=== PATIENT | male | born 1965 | race Caucasian/White ===

== ENCOUNTER 2017-12-07 01:48 | Emergency (ER) | payer MEDICAID ==
[~2017-12-07] VITALS: Ht 170.2 cm; Wt 81.8 kg
[~2017-12-07 01:48] MED LIST: CHLO473M3 PO
[2017-12-07 02:29] VITALS: BP 176/102
== END 2017-12-07 02:31 ==
LOC: ER 01:48
DX: I10 Essential (primary) hypertension (principal); E11.9 Type 2 diabetes mellitus without complications; F12.10 Cannabis abuse, uncomplicated; Z59.0 Homelessness; Z56.0 Unemployment, unspecified
CPT/HCPCS: 99283

== ENCOUNTER 2018-02-18 23:00 | Emergency (ER) | payer MEDICAID ==
[~2018-02-18] VITALS: Ht 170.2 cm; Wt 81.2 kg
[2018-02-18] MEDS ORDERED: BACDS PO (23:54)
[2018-02-19 00:07] VITALS: BP 140/100
== END 2018-02-19 00:09 | disposition home or self-care (01) ==
LOC: ER 23:01
DX: L08.9 Local infection of the skin and subcutaneous tissue, unspecified (principal); E11.9 Type 2 diabetes mellitus without complications; I10 Essential (primary) hypertension; Z59.0 Homelessness; Z56.0 Unemployment, unspecified
CPT/HCPCS: 73140; 99284

== ENCOUNTER 2018-03-19 22:21 | Emergency (ER) | payer MEDICAID ==
[~2018-03-19] VITALS: Ht 170.2 cm; Wt 80.0 kg
[2018-03-20] MEDS ORDERED: CHLO118M PO (01:56)
[2018-03-20 03:15] VITALS: BP 168/106
[2018-03-20] MEDS ORDERED: IBUP-1984 PO (03:31)
[2018-03-20] MEDS ORDERED: HYDR-3965 PO (03:31)
== END 2018-03-20 03:39 | disposition home or self-care (01) ==
LOC: ER 22:21
DX: S12.301 Unspecified nondisplaced fracture of fourth cervical vertebra (principal); S02.82XD Fracture of other specified skull and facial bones, left side, subsequent encounter for fracture with routine healing; S70.12XD Contusion of left thigh, subsequent encounter
CPT/HCPCS: 73564; 93971; 99284

== ENCOUNTER 2018-05-21 00:40 | Emergency (ER) | payer MEDICAID ==
[~2018-05-21] VITALS: Ht 170.2 cm; Wt 79.0 kg
[~2018-05-21 00:40] MED LIST changes: +CHLO118M PO
[2018-05-21] MEDS ORDERED: HYDROmorphone 2mg tablet PO PRN (01:15)
[2018-05-21] MEDS: normal saline 1000ML IV soln IVB ONE ×2 (01:17→05:23)
[2018-05-21 02:41] LABS: CLARITY,URINE CLEAR (Clear); COLOR,URINE YELLOW (Yellow); GLUCOSE, URINE 250 mg/dl (Neg); KETONES,URINE NEGATIVE (Neg); LEUKOCYTE ESTERASE ,URINE NEGATIVE (Neg); NITRITES, URINE NEGATIVE (Neg); OCCULT BLOOD,URINE NEGATIVE (Neg); PROTEIN,URINE 30 mg/dl (Neg); UROBILINOGEN,URINE 0.2 E.U/dL (0.2-1.0)
[2018-05-21 02:45] LABS: UA COLLECTION TYPE URINAL
[2018-05-21] MEDS ORDERED: cyclobenzaprine 10mg tablet PO ONE (02:55)
[2018-05-21] MEDS ORDERED: HYDROcodone/acetaminophen 10/325mg tab PO ONE (02:55)
[2018-05-21] MEDS ORDERED: HYDR-565 PO (02:57)
[2018-05-21 02:59] LABS: SQUAMOUS EPITHELIAL CELL,UR FEW /LPF (FEW)
[2018-05-21] MEDS ORDERED: normal saline 1000ML IV soln IVB ONE (03:00)
[2018-05-21 03:01] LABS: BACTERIA,URINE NONE SEEN /HPF (Neg); MUCUS STRANDS MANY /LPF (Neg); RBC,URINE 0-2 /HPF (0-2); WBC,URINE 0-4 /HPF (0-4)
[2018-05-21 03:37] LABS: BASOPHILS % (AUTO) 0.4 % (0-1); EOSINOPHILS # (AUTO) 0.4 X10'3 (0-0.9); EOSINOPHILS % (AUTO) 3.9 % (0-6); HEMATOCRIT 29.9 % (42.0-52.0); HEMOGLOBIN 10.1 g/dl (14.0-17.9); LYMPHOCYTES # (AUTO) 2.5 X10'3 (1.1-4.8); LYMPHOCYTES % (AUTO) 24.9 % (21-51); MEAN CORPUSCULAR HEMOGLOBIN 31.7 PG (27.0-31.0); MEAN CORPUSCULAR HGB CONC 33.9 % (33.0-36.5); MEAN CORPUSCULAR VOLUME 93.6 FL (78-98); MEAN PLATELET VOLUME 9.1 FL (7.4-10.4); MONOCYTES # (AUTO) 0.9 X10'3 (0-0.9); MONOCYTES % (AUTO) 8.3 % (2-12); NEUTROPHILS # (AUTO) 6.4 X10'3 (1.8-7.7); NEUTROPHILS % (AUTO) 62.5 % (42-75); PLATELET COUNT 228 X10'3 (140-440); RED BLOOD COUNT 3.19 X10'6 (4.70-6.10); RED CELL DISTRIBUTION WIDTH 13.4 % (11.5-14.5); WHITE BLOOD COUNT 10.3 X10'3 (4.5-11.0)
[2018-05-21 03:50] LABS: ALANINE AMINOTRANSFERASE 35 U/L (12-78); ALBUMIN 3.2 G/DL (3.4-5.0); ALBUMIN/GLOBULIN RATIO 1.1 (1.1-1.5); ALKALINE PHOSPHATASE 92 IU/L (46-116); ANION GAP 10 (8-16); ASPARTATE AMINO TRANSFERASE 32 U/L (10-37); BILIRUBIN,TOTAL 0.4 MG/DL (0.1-1.0); BLOOD UREA NITROGEN 15 MG/DL (7-18); BUN/CREATININE RATIO 9.7 (5.4-32.0); CALCIUM 8.4 MG/DL (8.5-10.1); CHLORIDE 102 MMOL/L (99-107); CREATININE 1.54 MG/DL (0.60-1.10); GLUCOSE 115 MG/DL (70-104); POTASSIUM 3.1 MMOL/L (3.5-5.1); SODIUM 137 MMOL/L (135-145); TOTAL CARBON DIOXIDE 24.9 MMOL/L (24-32); eGFR 48 ML/MIN
[2018-05-21 04:00] LABS: CREATINE KINASE 807 U/L (39-308)
[2018-05-21] MEDS ORDERED: methylPREDNISolone sod succ 125mg/2ml vial ONE (04:06)
[2018-05-21 05:56] VITALS: BP 136/83
== END 2018-05-21 05:57 | disposition home or self-care (01) ==
LOC: ER 00:40
DX: T79.6XXA Traumatic ischemia of muscle, initial encounter (principal); S40.012A Contusion of left shoulder, initial encounter; S20.212A Contusion of left front wall of thorax, initial encounter; F12.90 Cannabis use, unspecified, uncomplicated; I10 Essential (primary) hypertension; E11.9 Type 2 diabetes mellitus without complications; Z79.899 Other long term (current) drug therapy; Z59.0 Homelessness; Z56.0 Unemployment, unspecified; Y08.89XA Assault by other specified means, initial encounter; Y93.89 Activity, other specified; Y92.481 Parking lot as the place of occurrence of the external cause; Y99.8 Other external cause status
CPT/HCPCS: 36415; 71250; 80053; 81001; 82550; 83874; 85025; 99285; J7030; J2930

== ENCOUNTER 2018-07-28 16:57 | Emergency (ER) | payer MEDICAID ==
[~2018-07-28] VITALS: Ht 170.2 cm; Wt 78.0 kg
[2018-07-28 17:12] VITALS: BP 143/92
[2018-07-28] MEDS ORDERED: CLIN150C2 PO (18:12)
== END 2018-07-28 18:38 | disposition home or self-care (01) ==
LOC: ER 16:58
DX: L03.011 Cellulitis of right finger (principal); L03.113 Cellulitis of right upper limb; L08.9 Local infection of the skin and subcutaneous tissue, unspecified; I10 Essential (primary) hypertension; E11.9 Type 2 diabetes mellitus without complications; F17.210 Nicotine dependence, cigarettes, uncomplicated; F12.90 Cannabis use, unspecified, uncomplicated; Z59.0 Homelessness; Z56.0 Unemployment, unspecified; Z79.899 Other long term (current) drug therapy
CPT/HCPCS: 99283

== ENCOUNTER 2018-11-05 08:05 | Emergency (ER) | payer MEDICAID ==
[~2018-11-05] VITALS: Ht 170.2 cm; Wt 84.1 kg
[2018-11-05 08:18] VITALS: BP 143/86
[2018-11-05] MEDS ORDERED: TRIA15CR62 TP (09:27)
[2018-11-05] MEDS ORDERED: SULF1TAB49 PO (09:27)
== END 2018-11-05 09:42 | disposition home or self-care (01) ==
LOC: ER 08:05
DX: L02.415 Cutaneous abscess of right lower limb (principal); L98.9 Disorder of the skin and subcutaneous tissue, unspecified; I10 Essential (primary) hypertension; E11.9 Type 2 diabetes mellitus without complications; F12.90 Cannabis use, unspecified, uncomplicated; Z59.0 Homelessness; Z79.2 Long term (current) use of antibiotics; Z79.899 Other long term (current) drug therapy; Z56.0 Unemployment, unspecified
CPT/HCPCS: 99283

== ENCOUNTER 2019-04-09 03:27 | Emergency (ER) | payer MEDICAID | END 2019-04-09 04:36 | disposition left against medical advice (07) | LOC: ER 03:27 | DX: L08.9 Local infection of the skin and subcutaneous tissue, unspecified (principal); Z53.21 Procedure and treatment not carried out due to patient leaving prior to being seen by health care provider ==

== ENCOUNTER 2019-06-09 12:43 | Emergency (ER) | payer MEDICAID ==
[~2019-06-09] VITALS: Ht 170.2 cm; Wt 73.0 kg
[2019-06-09 13:26] LABS: BASOPHILS % (AUTO) 0.4 % (0-1); EOSINOPHILS # (AUTO) 0.4 X10'3 (0-0.9); EOSINOPHILS % (AUTO) 2.8 % (0-6); HEMATOCRIT 41.1 % (42.0-52.0); HEMOGLOBIN 13.7 g/dl (14.0-17.9); LYMPHOCYTES # (AUTO) 1.7 X10'3 (1.1-4.8); LYMPHOCYTES % (AUTO) 13.8 % (21-51); MEAN CORPUSCULAR HEMOGLOBIN 31.9 PG (27.0-31.0); MEAN CORPUSCULAR HGB CONC 33.4 g/dL (33.0-36.5); MEAN CORPUSCULAR VOLUME 95.4 FL (78-98); MONOCYTES # (AUTO) 0.8 X10'3 (0-0.9); MONOCYTES % (AUTO) 6.2 % (2-12); NEUTROPHILS # (AUTO) 9.7 X10'3 (1.8-7.7); NEUTROPHILS % (AUTO) 76.8 % (42-75); PLATELET COUNT 241 X10'3 (140-440); RED CELL DISTRIBUTION WIDTH 13.7 % (11.5-14.5); WHITE BLOOD COUNT 12.6 X10'3 (4.5-11.0)
[2019-06-09 13:39] LABS: ALANINE AMINOTRANSFERASE 24 U/L (12-78); ALBUMIN 3.3 G/DL (3.4-5.0); ALBUMIN/GLOBULIN RATIO 0.9 (1.1-1.5); ALKALINE PHOSPHATASE 83 IU/L (46-116); ANION GAP 5 (8-16); ASPARTATE AMINO TRANSFERASE 12 U/L (10-37); BILIRUBIN,TOTAL 0.2 MG/DL (0.1-1.0); BLOOD UREA NITROGEN 17 MG/DL (7-18); BUN/CREATININE RATIO 14.9 (5.4-32.0); CALCIUM 8.8 MG/DL (8.5-10.1); CHLORIDE 107 MMOL/L (99-107); CREATININE 1.14 MG/DL (0.60-1.10); GLUCOSE 108 MG/DL (70-104); POTASSIUM 4.3 MMOL/L (3.5-5.1); SODIUM 143 MMOL/L (135-145); TOTAL CARBON DIOXIDE 30.9 MMOL/L (24-32); TOTAL PROTEIN 6.9 G/DL (6.4-8.2); eGFR 67 ML/MIN
[2019-06-09 13:48] LABS: CLARITY,URINE CLEAR (Clear); COLOR,URINE YELLOW (Yellow); GLUCOSE, URINE NEGATIVE (Neg); KETONES,URINE TRACE mg/dl (Neg); LEUKOCYTE ESTERASE ,URINE NEGATIVE (Neg); NITRITES, URINE NEGATIVE (Neg); OCCULT BLOOD,URINE NEGATIVE (Neg); PH,URINE 5.5 (4.8-8.0); PROTEIN,URINE NEGATIVE (Neg); UROBILINOGEN,URINE 0.2 E.U/dL (0.2-1.0)
[2019-06-09 13:52] LABS: UA COLLECTION TYPE VOIDED
[2019-06-09] MEDS ORDERED: AMOX-580 PO (14:20)
[2019-06-09] MEDS ORDERED: HYDR-4383 PO (14:20)
[2019-06-09 14:42] VITALS: BP 160/98
== END 2019-06-09 14:44 | disposition home or self-care (01) ==
LOC: ER 12:44
DX: S22.32XA Fracture of one rib, left side, initial encounter for closed fracture (principal); K57.32 Diverticulitis of large intestine without perforation or abscess without bleeding; I10 Essential (primary) hypertension; E11.9 Type 2 diabetes mellitus without complications; F12.90 Cannabis use, unspecified, uncomplicated; Z56.0 Unemployment, unspecified; Z59.0 Homelessness; Z79.899 Other long term (current) drug therapy; X58.XXXA Exposure to other specified factors, initial encounter; Y93.89 Activity, other specified; Y92.89 Other specified places as the place of occurrence of the external cause; Y99.8 Other external cause status
CPT/HCPCS: 36415; 74176; 80053; 81003; 85025; 99284

== ENCOUNTER 2019-09-12 13:40 | Emergency (ER) | payer MEDICAID ==
[~2019-09-12] VITALS: Ht 170.2 cm; Wt 75.0 kg
[~2019-09-12 13:40] MED LIST changes: +HYDR-4383 PO
[2019-09-12 13:51] VITALS: BP 143/120
[2019-09-12] MEDS ORDERED: ketorolac trometh inj. 60 MG/2 ML VIAL IM ONE (14:25)
--- NOTE | 2019-09-12 14:47 | NUR ---
RECEIVED RECORDS FROM THIS AM AND YESTERDAY FROM [facility] VIA [facility]. INFO GIVEN TO HYDROLOGICAL TECHNICAL OFFICER AND DR DAMON
--- NOTE | 2019-09-12 14:50 | NUR ---
PT IN CT
--- NOTE | 2019-09-12 15:03 | NUR ---
PT REFUSES SHOT OF TORADOL. I ASKED PT IF HE RECEIVED TORADOL THIS AM AT [facility] HE STATES NO HE REFUSED IT BECAUSE "THEY GAVE ME THAT FUCKING SHIT 2 DAYS AGO AND IT DIDNT FUCKING WORK" ASKED IF HE WANTED IT TODAY HE STATES "I'LL TAKE IF BUT YOU WILL SEE THAT IT DOESNT FUCKING WORK AND I WILL BE BACK IN HERE TOMOROW AND THE NEXT DAY AND THE NEXT DAY AND THE NEXT FUCKING DAY.
--- NOTE | 2019-09-12 15:11 | NUR ---
PT CHANGED HIS MIND AND TOOK THE TORADOL SHOT TO LEFT GLUT
[2019-09-12] MEDS ORDERED: IBUP-1984 PO (15:27)
[2019-09-12] MEDS ORDERED: HYDROcodone/acetaminophen 5mg/325mg tablet PO ONE (15:30)
== END 2019-09-12 15:42 | disposition home or self-care (01) ==
LOC: ER 13:41
DX: S39.012A Strain of muscle, fascia and tendon of lower back, initial encounter (principal); I10 Essential (primary) hypertension; E11.9 Type 2 diabetes mellitus without complications; F12.90 Cannabis use, unspecified, uncomplicated; Z59.0 Homelessness; Z56.0 Unemployment, unspecified; Z79.899 Other long term (current) drug therapy; X58.XXXA Exposure to other specified factors, initial encounter; Y93.89 Activity, other specified; Y92.89 Other specified places as the place of occurrence of the external cause; Y99.8 Other external cause status
CPT/HCPCS: 72131; 96372; 99284; J1885

== ENCOUNTER 2019-10-01 01:50 | Emergency (ER) | payer MEDICAID ==
[~2019-10-01] VITALS: Ht 170.2 cm; Wt 77.3 kg
[2019-10-01] MEDS ORDERED: acetaminophen 325mg tablet PO ONE (02:30)
[2019-10-01] MEDS ORDERED: HYDROcodone/acetaminophen 5mg/325mg tablet PO ONE (02:30)
[2019-10-01] MEDS ORDERED: ketorolac trometh inj. 60 MG/2 ML VIAL IM ONE (02:30)
[2019-10-01] MEDS ORDERED: triamcinolone acetonide 40mg/ml inj IM ONE (02:30)
[2019-10-01 03:04] VITALS: BP 164/85
== END 2019-10-01 03:06 | disposition home or self-care (01) ==
LOC: ER 01:50
DX: G89.29 Other chronic pain (principal); M54.9 Dorsalgia, unspecified; M54.30 Sciatica, unspecified side; I10 Essential (primary) hypertension; E11.9 Type 2 diabetes mellitus without complications; F12.90 Cannabis use, unspecified, uncomplicated; Z59.0 Homelessness; Z56.0 Unemployment, unspecified
CPT/HCPCS: 96372; 99283; J1885; J3301

== ENCOUNTER 2019-11-06 23:01 | Emergency (ER) | payer MEDICAID ==
[~2019-11-06] VITALS: Ht 170.2 cm; Wt 84.0 kg
--- NOTE | 2019-11-07 00:31 | NUR ---
SHEET METAL JOURNEYMAN at bedside.
[2019-11-07] MEDS ORDERED: hydrALAZINE 20mg/ml inj. IV ONE ×2 (00:40→00:50)
[2019-11-07] MEDS ORDERED: ketorolac trometh inj. 60 MG/2 ML VIAL IM ONE (00:55)
[2019-11-07] MEDS ORDERED: ketorolac trometh. 30mg/ml inj. IV ONE (01:00)
--- NOTE | 2019-11-07 01:10 | NUR ---
Toradol held until blood work results as patient has uncontrolled hyptertension and is a diabetic.
[2019-11-07 01:12] LABS: BASOPHILS # (AUTO) 0.1 X10'3 (0-0.2); BASOPHILS % (AUTO) 1.2 % (0-1); EOSINOPHILS # (AUTO) 0.7 X10'3 (0-0.9); HEMATOCRIT 38.7 % (42.0-52.0); HEMOGLOBIN 12.9 g/dl (14.0-17.9); LYMPHOCYTES # (AUTO) 1.8 X10'3 (1.1-4.8); LYMPHOCYTES % (AUTO) 14.9 % (21-51); MEAN CORPUSCULAR HEMOGLOBIN 31.6 PG (27.0-31.0); MEAN CORPUSCULAR HGB CONC 33.3 g/dL (33.0-36.5); MEAN PLATELET VOLUME 9.4 FL (7.4-10.4); MONOCYTES # (AUTO) 0.8 X10'3 (0-0.9); MONOCYTES % (AUTO) 6.3 % (2-12); NEUTROPHILS # (AUTO) 8.6 X10'3 (1.8-7.7); NEUTROPHILS % (AUTO) 71.6 % (42-75); PLATELET COUNT 271 X10'3 (140-440); RED BLOOD COUNT 4.07 X10'6 (4.70-6.10); RED CELL DISTRIBUTION WIDTH 13.8 % (11.5-14.5)
--- NOTE | 2019-11-07 01:20 | NUR ---
Entered patient's room to re-check his blood pressure when he jumped off the gurney, ripped off his 5 lead wires and blood pressure cuff and yells, "I'm fucking out of here! I'm going to the other hospital!! Why are you checking my blood!?" I explained to the patient the concern for his heart and he yells, "Bullshit!". Explained to the patient that leaving prior to his workup could kill him. His IV was removed. Kinjal Farr notified. Patient refuses to sign AMA paperwork.
[2019-11-07] MEDS ORDERED: amoxicillin 250mg capsule PO STA (01:23)
[2019-11-07] MEDS ORDERED: ondansetron 4mg rapidly disintigrating tab PO ONE (01:25)
[2019-11-07] MEDS ORDERED: HYDROcodone/acetaminophen 5mg/325mg tablet PO ONE (01:25)
[2019-11-07 01:26] LABS: ALANINE AMINOTRANSFERASE 26 U/L (12-78); ALBUMIN 3.5 G/DL (3.4-5.0); ALBUMIN/GLOBULIN RATIO 1.3 (1.1-1.5); ALKALINE PHOSPHATASE 72 IU/L (46-116); ANION GAP 6 (8-16); ASPARTATE AMINO TRANSFERASE 18 U/L (10-37); BILIRUBIN,TOTAL 0.1 MG/DL (0.1-1.0); BLOOD UREA NITROGEN 19 MG/DL (7-18); CALCIUM 8.6 MG/DL (8.5-10.1); CHLORIDE 108 MMOL/L (99-107); GLUCOSE 130 MG/DL (70-104); SODIUM 144 MMOL/L (135-145); TOTAL CARBON DIOXIDE 29.7 MMOL/L (24-32); TOTAL PROTEIN 6.3 G/DL (6.4-8.2); eGFR 78 ML/MIN
[2019-11-07] MEDS ORDERED: AMOX500C2 PO (01:42)
[2019-11-07] MEDS ORDERED: HYDR25TA4 PO (01:44)
--- NOTE | 2019-11-07 01:45 | NUR ---
ASSSUMED CAR OF PT , PT MEDICATED FOR PAIN WITH NORCO 5 , ZOFRAN 4 MG PO , AND ABX PO ORDERED. SECURITY AT BEDSIDE PT COROPORATIVE . SECURITY GIVEN PT NECK KNIFE . DOCUMENTATION GIVEN TO PT FOR HIS RETRIVAL
[2019-11-07 01:46] LABS: ETHANOL < 0.010 GM/DL (0.0-0.010)
--- NOTE | 2019-11-07 02:00 | NUR ---
PT UP OUT OF BED TO BATHROOM . PT USED HIS CANE , STATED HE WAS SHEILA GTO HAVE BM AND WOULD BE IN THE BATHROOM A BIT .
--- NOTE | 2019-11-07 02:03 | NUR ---
APRESOLINE IV AKNOWLEDGED BUT NOT GIVEN PT IV WAS DISCONTINUED PREVIOUSLY MENTIONED. PT CHANGED OVER TO PO MEDS. PROP WORKER ECHOLS AWARE
--- NOTE | 2019-11-07 02:03 | NUR ---
NON ADMIN TORADOL ORDER, PATIENT STATED HE WAS LEAVING . AMBULATED OFF UNIT AND WAS BROUGHT BACK TO ROOM BY terrazzo mechanic ONESIMO AND ALL MEDICATION WAS CHANGED TO PO
[2019-11-07 02:32] VITALS: BP 191/98
== END 2019-11-07 02:35 | disposition home or self-care (01) ==
LOC: ER 23:01
DX: H66.91 Otitis media, unspecified, right ear (principal); I10 Essential (primary) hypertension; J02.9 Acute pharyngitis, unspecified; E11.9 Type 2 diabetes mellitus without complications; G89.29 Other chronic pain; F12.90 Cannabis use, unspecified, uncomplicated; Z59.0 Homelessness; Z56.0 Unemployment, unspecified; Z79.899 Other long term (current) drug therapy
CPT/HCPCS: 36415; 80053; 80320; 83880; 84484; 85025; 93005; 96374; 99284; J0360

== ENCOUNTER 2020-02-09 13:29 | Emergency (ER) | payer MEDICAID ==
[~2020-02-09] VITALS: Ht 177.8 cm; Wt 80.0 kg
[~2020-02-09 13:29] MED LIST changes: +HYDR25TA4 PO
[2020-02-09 13:34] VITALS: BP 156/107
[2020-02-09] MEDS ORDERED: CEPH500C5 PO (14:11)
[2020-02-09] MEDS ORDERED: SULF1TAB49 PO (14:11)
== END 2020-02-09 14:20 | disposition home or self-care (01) ==
LOC: ER 13:30
DX: L03.012 Cellulitis of left finger (principal); I10 Essential (primary) hypertension; E11.9 Type 2 diabetes mellitus without complications; F12.90 Cannabis use, unspecified, uncomplicated; G89.29 Other chronic pain; Z59.0 Homelessness; Z56.0 Unemployment, unspecified; Z79.899 Other long term (current) drug therapy
CPT/HCPCS: 99283

== ENCOUNTER 2020-03-06 19:50 | Emergency (ER) | payer MEDICAID ==
[~2020-03-06] VITALS: Ht 170.2 cm; Wt 77.3 kg
[2020-03-06] MEDS ORDERED: proparacaine 0.5% ophthalmic drops 15ml EACHEYE ONE (20:45)
[2020-03-06] MEDS ORDERED: ciprofloxacin 0.3% 2.5ml ophthalmic solution RIGHTEYE ONE (21:25)
[2020-03-06 21:39] VITALS: BP 139/71
== END 2020-03-06 21:42 | disposition home or self-care (01) ==
LOC: ER 19:51
DX: S05.01XA Injury of conjunctiva and corneal abrasion without foreign body, right eye, initial encounter (principal); I10 Essential (primary) hypertension; E11.9 Type 2 diabetes mellitus without complications; G89.29 Other chronic pain; F12.90 Cannabis use, unspecified, uncomplicated; Z59.0 Homelessness; Z56.0 Unemployment, unspecified; Z79.899 Other long term (current) drug therapy; X58.XXXA Exposure to other specified factors, initial encounter; Y93.89 Activity, other specified; Y92.89 Other specified places as the place of occurrence of the external cause; Y99.9 Unspecified external cause status
CPT/HCPCS: 99283

== ENCOUNTER 2020-06-03 00:11 | Emergency (ER) | payer MEDICAID ==
[~2020-06-03] VITALS: Ht 170.2 cm; Wt 72.5 kg
[2020-06-03] MEDS ORDERED: SULF1TAB49 PO (01:59)
--- NOTE | 2020-06-03 02:27 | NUR ---
Pt prepared for DC. Requesting ibuprofen prior to dc. Verbal received by dr. newberry for iboprofen 400 mg x1 now.
[2020-06-03 02:38] VITALS: BP 159/104
[2020-06-03] MEDS ORDERED: ibuprofen tablet 400 MG TABLET PO ONE (02:40)
== END 2020-06-03 02:49 | disposition home or self-care (01) ==
LOC: ER 00:11
DX: L03.311 Cellulitis of abdominal wall (principal); F12.90 Cannabis use, unspecified, uncomplicated; Z59.0 Homelessness; Z56.0 Unemployment, unspecified; Z79.899 Other long term (current) drug therapy
CPT/HCPCS: 99283

== ENCOUNTER 2020-07-07 05:11 | Emergency (ER) | payer MEDICAID ==
[~2020-07-07] VITALS: Ht 170.2 cm; Wt 77.7 kg
[2020-07-07 05:14] VITALS: BP 166/93
[2020-07-07] MEDS ORDERED: SULF1TAB48 PO (05:44)
[2020-07-07] MEDS ORDERED: sulfamethoxazole/trimethoprim DS (800/160mg) tablet PO ONE (05:45)
== END 2020-07-07 05:57 | disposition home or self-care (01) ==
LOC: ER 05:11
DX: L03.114 Cellulitis of left upper limb (principal); I10 Essential (primary) hypertension; E11.9 Type 2 diabetes mellitus without complications; G89.29 Other chronic pain; F12.90 Cannabis use, unspecified, uncomplicated; Z72.0 Tobacco use; Z59.0 Homelessness; Z56.0 Unemployment, unspecified; Z72.89 Other problems related to lifestyle; Z79.899 Other long term (current) drug therapy
CPT/HCPCS: 99283

== ENCOUNTER 2021-03-16 20:39 | Emergency (ER) | payer MEDICAID ==
[~2021-03-16] VITALS: Ht 170.2 cm; Wt 82.2 kg
[2021-03-16 20:45] VITALS: BP 182/95
== END 2021-03-16 21:59 | disposition left against medical advice (07) ==
LOC: ER 20:39
DX: R21 Rash and other nonspecific skin eruption (principal); Z53.21 Procedure and treatment not carried out due to patient leaving prior to being seen by health care provider

== ENCOUNTER 2024-02-12 23:07 | Emergency (ER) | payer MEDICAID ==
[~2024-02-12] VITALS: Ht 170.2 cm; Wt 101.4 kg
[2024-02-12 23:09] VITALS: BP 177/89; PULSE 96; RESP 16; TEMP 98; O2SAT 94
[2024-02-12] MEDS ORDERED: IBUP-1984 PO (23:26)
[2024-02-12] MEDS ORDERED: AMOX500C2 PO (23:26)
[2024-02-12] MEDS: ibuprofen tablet 400 MG TABLET PO ONE (23:37)
== END 2024-02-13 00:48 | disposition home or self-care (01) ==
LOC: ER 23:07
DX: H66.91 Otitis media, unspecified, right ear (principal); I10 Essential (primary) hypertension; E11.9 Type 2 diabetes mellitus without complications; F12.90 Cannabis use, unspecified, uncomplicated
CPT/HCPCS: 99283

== ENCOUNTER 2024-05-09 13:37 | Emergency (ER) | payer MEDICAID ==
[~2024-05-09] VITALS: Ht 170.2 cm; Wt 93.2 kg
[~2024-05-09 13:37] MED LIST changes: +CHLO473M13 PO; -CHLO473M3 PO
[2024-05-09 14:16] LABS: BASOPHILS # (AUTO) 0.1 X10'3 (0-0.2); BASOPHILS % (AUTO) 0.6 % (0-1); EOSINOPHILS # (AUTO) 0.3 X10'3 (0-0.9); EOSINOPHILS % (AUTO) 2.8 % (0-6); HEMATOCRIT 46.2 % (42.0-52.0); HEMOGLOBIN 15.4 g/dl (14.0-17.9); LYMPHOCYTES # (AUTO) 1.5 X10'3 (1.1-4.8); LYMPHOCYTES % (AUTO) 13.1 % (21-51); MEAN CORPUSCULAR HEMOGLOBIN 32.1 PG (27.0-31.0); MEAN CORPUSCULAR HGB CONC 33.4 g/dL (33.0-36.5); MEAN PLATELET VOLUME 9.5 FL (7.4-10.4); MONOCYTES # (AUTO) 0.8 X10'3 (0-0.9); MONOCYTES % (AUTO) 6.6 % (2-12); NEUTROPHILS # (AUTO) 8.9 X10'3 (1.8-7.7); NEUTROPHILS % (AUTO) 76.9 % (42-75); PLATELET COUNT 186 X10'3 (140-440); RED BLOOD COUNT 4.81 X10'6 (4.70-6.10); WHITE BLOOD COUNT 11.6 X10'3 (4.5-11.0)
[2024-05-09 14:31] LABS: ALANINE AMINOTRANSFERASE 33 U/L (12-78); ALBUMIN 3.4 G/DL (3.4-5.0); ALKALINE PHOSPHATASE 90 IU/L (46-116); ANION GAP 8 (8-16); ASPARTATE AMINO TRANSFERASE 16 U/L (10-37); BILIRUBIN,TOTAL 0.3 MG/DL (0.1-1.0); BLOOD UREA NITROGEN 17 MG/DL (7-18); BUN/CREATININE RATIO 15.9 (10.0-20.0); CALCIUM 8.8 MG/DL (8.5-10.1); CHLORIDE 103 MMOL/L (99-107); CREATININE 1.07 MG/DL (0.60-1.10); GLUCOSE 153 MG/DL (70-104); LIPASE 37 U/L (16-77); POTASSIUM 3.8 MMOL/L (3.5-5.1); SODIUM 138 MMOL/L (135-145); TOTAL CARBON DIOXIDE 27.3 MMOL/L (24-32); TOTAL PROTEIN 6.7 G/DL (6.4-8.2); eCRCL 71 ML/MIN; eGFR 71 ML/MIN
[2024-05-09 16:23] LABS: BILIRUBIN,URINE NEGATIVE (Neg); CLARITY,URINE CLEAR (Clear); COLOR,URINE YELLOW (Yellow); GLUCOSE, URINE 100 mg/dl (Neg); KETONES,URINE NEGATIVE (Neg); LEUKOCYTE ESTERASE ,URINE NEGATIVE (Neg); NITRITES, URINE NEGATIVE (Neg); OCCULT BLOOD,URINE NEGATIVE (Neg); PROTEIN,URINE NEGATIVE (Neg); UROBILINOGEN,URINE 0.2 E.U/dL (0.2-1.0)
[2024-05-09 16:29] LABS: UA COLLECTION TYPE CLN CATCH MIDSTREAM
[2024-05-09] MEDS ORDERED: CEPH-585 PO (16:43)
[2024-05-09 17:21] VITALS: BP 126/72; PULSE 80; RESP 16; TEMP 98.1; O2SAT 95
== END 2024-05-09 17:22 | disposition home or self-care (01) ==
LOC: ER 13:38
DX: G89.29 Other chronic pain (principal); R10.32 Left lower quadrant pain; L03.031 Cellulitis of right toe; I10 Essential (primary) hypertension; E11.9 Type 2 diabetes mellitus without complications; M54.9 Dorsalgia, unspecified; Z72.89 Other problems related to lifestyle; F12.90 Cannabis use, unspecified, uncomplicated; Z59.00 Homelessness unspecified; Z56.0 Unemployment, unspecified
CPT/HCPCS: 36415; 74176; 80053; 81003; 83690; 85025; 99284

== ENCOUNTER 2025-06-25 03:41 | Emergency (ER) | payer MEDICAID ==
[~2025-06-25] VITALS: Ht 170.2 cm; Wt 86.3 kg
--- NOTE | 2025-06-25 03:53 | Physician Documentation ---
History of Present Illness ~ Chief Complaint: Finger pain Stated Complaint: FINGER PAIN Time Seen by MD: 03:52 Primary Medical Doctor: LORENA LUNDY Patient presents to the emergency room for evaluation of right index finger pain that has been going on for proximally 2-3 weeks. He states he initially hurt it while working on a car. He states he took a red hot nail to try and cauterize in [place] what he thought may be an abscess that has unsuccessful. He then went to the emergency room that has put on antibiotics and returned to the emergency room and put on additional antibiotics. He is continuing to take his 2nd course of antibiotics with Augmentin. No fevers. He says incision and drainage was performed upon his last ER visit but he believes they did not get any pus out of it. He reports a vessel loop was placed but he just removed. Pain has overall improved. He is declining pain medication Tetanus within 5 years: Yes Medication Reconciliation Allergies: Coded Allergies: No Known Allergies (Unverified , 06/25/25) Scheduled Chlorhexidine Gluconate (Periogard), 15 ML PO Q12H Chlorhexidine Gluconate (Peridex), 15 ML PO BID Hydrochlorothiazide (Hydrochlorothiazide), 1 TAB PO DAILY Hydrocodone/Acetaminophen ([place] 5-325 Tablet), 1 TAB PO TID PRN Past Medical History Past Medical History: Hypertension, Diabetes, Chronic Back Pain, C-Diff Past Surgical History: noncontributory Alcohol Use: Occasionally Drug Use: marijuana Lives In: Homeless Occupation: unemployed Review of Systems ROS All review of systems negative except as per HPI Physical Exam Vital Signs: Temperature: 97.7, Source: Oral, Heart Rate: 101, Respiratory Rate: 19, BP: 174/103, Pulse Oximetry: 99, Weight: 86.320 Oxygen Flow Rate: 0 Physical Exam General: Patient is awake, alert, oriented x4 in no acute distress Head: Normocephalic and atraumatic. Eyes: Conjunctival normal. EOMI. PERRL. ENT: Mucous membranes moist. Neck: Supple, trachea is midline. Chest: Clear to auscultation bilaterally without rales, rhonchi, or wheezes. There is no accessory muscle use or retractions. Cardiac: RRR without murmurs, gallops, or rubs. Extremities: Right index finger with mild swelling to distal phalanx. Movements intact. No appreciable cellulitis. No fluctuance Progress Results/Orders Results/Orders Vital Signs 06/25/25 03:42 Temp 97.7 Pulse 101 Resp 19 B/P (MAP) 174/103 Pulse Ox 99 O2 Flow Rate 0 Medical Decision Making Findings Patient presented to the emergency room with finger pain as per HPI. Differe ntials include but are not limited to abscess, cellulitis, osteomyelitis, residual pain. Offered to perform incision and drainage however patient is declining would prefer to finish his antibiotics which is reasonable. I do not appreciate any fluctuance or cellulitis at this time and movements are intact. ER precautions discussed Departure Disposition: HOME / SELF CARE / HOMELESS Impression: Primary Impression: Finger pain Condition: Stable Discharge Instructions: Hand Pain Referrals: NO PRIMARY CARE PROVIDER (PCP) Signature Scribe Signature: No scribe Attestation: The note accurately reflects work and decisions made by me.Evangelist Wiggins MD 06/25/25 04:13 EVANGELIST WIGGINS MD Jun 25, 2025 03:53
[2025-06-25 04:22] VITALS: BP 155/92; PULSE 93; RESP 16; O2SAT 99
[2025-06-25 04:35] VITALS: TEMP 97.9
== END 2025-06-25 04:37 | disposition home or self-care (01) ==
LOC: ER 03:42
DX: M79.644 Pain in right finger(s) (principal); E11.9 Type 2 diabetes mellitus without complications; I10 Essential (primary) hypertension; F12.90 Cannabis use, unspecified, uncomplicated
CPT/HCPCS: 99282